=== PATIENT | female | born 1965 | race Caucasian/White ===

== ENCOUNTER 2018-12-29 08:46 | Day surgery (SDC) | payer MEDICARE, OTHER, SELFPAY ==
[2018-12-27 12:43] VITALS: BMI 22.4
[2018-12-29] MEDS: LACTATED RINGERS 1,000 ML 42 ML IV (09:09)
[2018-12-29 09:10] VITALS: BP 127/81; PULSE 75; RESP 16; TEMP 36.4; O2SAT 99; BMI 22.4
--- NOTE | 2018-12-29 10:37 | PM.PREOP ---
Pre-operative Note Interval Note History & Physical reviewed/Exam performed by Physician: Yes Changes to H&P: No
[2018-12-29] MEDS: CEFAZOLIN 2 GM/100 ML FROZ.PIGGY IV (11:06)
--- NOTE | 2018-12-29 11:08 | SUR.PREOP ---
Block start time [1046] . Monitoring initiated and maintained throughout procedure. Oxygen and medications given per anesthesiologist instructions. Patient remained stable throughout procedure, no adverse reactions noted. Block end time [1104].
--- NOTE | 2018-12-29 11:23 | SUR.OPER ---
Supine on padded OR bed, head on pillow, left arm secured on padded arm boards at <90 degrees abduction, right arm drapped free on padded black armboard, legs uncrossed, safety belt at thigh, tape over blanket over lower legs.
--- NOTE | 2018-12-29 11:51 | P.OP_ITS ---
Operative Date/Time/Diagnoses Date of procedure: 12/29/18 Time of procedure: 11:21 Pre-op diagnosis: Right cubital tunnel right middle finger trigger finger Post-op diagnosis: same Procedure & Clinicians Procedure: right cubital tunnel release, right middle finger trigger finger release Same procedure as scheduled: Yes Indications: compression of the ulnar nerve at the cubital tunnel as well as triggering to the right middle finger Surgeon: David Kaminski Pipe Fitter Fire Sprinkler Systems: Sofia Badlwin Anesthesia Type: Peripheral nerve block Operative Notes Findings: compression of the median nerve at the cubital tunnel. No sign of any significant compression distally approximately 2 the cubital tunnel. Triggering of the right middle finger at the A1 chriss. Closure Type: primary Specimen(s): none sent Blood products transfused: none Procedure in detail: On date of service, the patient was met in the holding area. Patients operative site was signed and witnessed by the OR staff. The surgery was once again discussed with the patient, and any remaining questions they had were answered fully. Patient was taken back to the operating theater and placed on the operating table in a supine position. Great care was taken to ensure that all bony prominences were carefully padded. A well-padded tourniquet was placed up along the upper extremity. A timeout was performed to verify patient's name, procedure, and operative site. The arm was then prepped and draped in the normal sterile fashion. A 15 blade was used to incise through skin in the distal palmar crease in line with the middle finger. Pickups and tenotomies were used to bluntly dissect down until the A1 chriss was visualized. Digital nerves were identified and protected. A1 chriss was sharply incised using a 15 blade. This was then completed with Metzenbaum scissors. Once we had opened up the A1 chriss the middle finger would move freely without any locking or catching. We then turned our attention to the cubital tunnel. Ten blade was used to make an incision centered over the cubital tunnel. Ten blade was used incise through skin and fascial tissue. Electrocautery was used to achieve hemostasis. Deep knife was used to proceed with sharp dissection. Next, Metzenbaum scissors were used to identify the nerve proximal to the cubital tunnel. This was then decompressed proximally. Next, the ulnar nerve was decompressed through the cubital tunnel by releasing the cubital tunnel. This decompression was continued distally providing a complete decompression of the nerve. Wound was irrigated and then closed in a layered fashion. The hand was then cleaned, dried, and dressed. Patient was taken to the PACU in stable condition. Complications: none Post-operative Condition: stable Disposition: PACU Plan for aftercare: Patient will follow our postoperative protocol for a cubital tunnel release. No restrictions of range of motion. No lifting more than 2-3 lb for the next 2 weeks.
[2018-12-29 12:01] VITALS: BP 154/95; PULSE 79; RESP 15; TEMP 36.8; O2SAT 99
--- NOTE | 2018-12-29 12:14 | SUR.PHASEII ---
D/c instructions started with pt, in going over post op medication for vicoden pt stated she does not do well with vicoden and tylenol messes with my heart. Dr. Urias to bedside, to talk with pt.
--- NOTE | 2018-12-29 12:18 | SUR.PHASEII ---
Dressing remains c/d/i. Pt now states l arm is starting to wake up and rates pain 5/10. Pt wanting to wait till she gets home to take meds. New prescription for demerol given.
[2018-12-29 12:30] VITALS: BP 136/84; PULSE 77; RESP 16; TEMP 36.7; O2SAT 100
--- NOTE | 2018-12-29 12:49 | SUR.PHASEII ---
Pt dressed when ready and left unit in stable condition.
== END 2018-12-29 12:45 | disposition home or self-care (01) ==
PROVIDERS: Family Provider Family Medicine; PCP Family Medicine; Visit Provider Orthopaedic Surgery
PROC: (CPT 64718; principal; 2018-12-29 10:45)
PROC: (CPT 26055; 2018-12-29 10:45)
DX: G56.01 Carpal tunnel syndrome, right upper limb (principal); G56.21 Lesion of ulnar nerve, right upper limb; M65.331 Trigger finger, right middle finger; G89.18 Other acute postprocedural pain
CPT/HCPCS: 64718; 26055; 64450; J0690; J1100; J2250; J2704; J3010

== ENCOUNTER 2019-05-18 06:28 | Day surgery (SDC) | payer MEDICARE, OTHER, SELFPAY ==
[2019-05-17 08:28] VITALS: BMI 22.4
[2019-05-18] VITALS (8 sets, daily range): BP systolic 84–128; BP diastolic 55–92; PULSE 60–80; RESP 14–17; TEMP 36–36.4; O2SAT 93–100; BMI 22.1
[2019-05-18] MEDS: GABAPENTIN 300 MG CAPSULE PO (07:37)
[2019-05-18] MEDS: LACTATED RINGERS 1,000 ML 42 ML IV (07:37)
[2019-05-18] MEDS: ACETAMINOPHEN 325 MG TABLET 975 MG PO (07:37)
[2019-05-18] MEDS: SCOPOLAMINE 1 PATCH TOP (07:38)
--- NOTE | 2019-05-18 07:44 | PM.PREOP ---
Pre-operative Note Interval Note History & Physical reviewed/Exam performed by Physician: Yes Changes to H&P: No
[2019-05-18] MEDS: CLINDAMYCIN 900 MG/50 ML PIGGYBACK 50 MG IV (07:55)
--- NOTE | 2019-05-18 08:19 | SUR.OPER ---
Supine on padded OR bed, head on pillow, right arm secured on padded arm board at <90 degrees abduction, left arm on arm table under control of surgeon, legs uncrossed, safety belt at thigh, tape over blanket over lower legs.
[2019-05-18] MEDS: BUPIVACAINE 0.5% W/ EPI (PF) 10 ML VIAL 20 ML INJ (08:27)
[2019-05-18] MEDS: DEXAMETHASONE 10 MG/ML VIAL 4 MG INJ (08:29)
--- NOTE | 2019-05-18 08:59 | PM.OP.1 ---
Operative Date/Time/Diagnoses Date of procedure: 05/18/19 Time of procedure: 08:00 Pre-op diagnosis: Left carpal tunnel and cubital tunnel as well as medial epicondylitis Post-op diagnosis: same Procedure & Clinicians Procedure: Left carpal tunnel and cubital tunnel release as well as injection into the medial epicondyle Same procedure as scheduled: Yes Indications: Left carpal tunnel and cubital tunnel and medial epicondylitis Surgeon: David Kaminski Underwater Photographer: Mic Chavez Anesthesia Type: General Operative Notes Findings: Compression of the median nerve at the carpal tunnel compression of the ulnar nerve at the cubital tunnel Closure Type: primary Specimen(s): none sent Estimated Blood Loss (mL): 0 Blood products transfused: none Tourniquet time (min): 26 Procedure in detail: On date of service, the patient was met in the holding area. Patients operative site was signed and witnessed by the OR staff. The surgery was once again discussed with the patient, and any remaining questions they had were answered fully. Patient was taken back to the operating theater and placed on the operating table in a supine position. Great care was taken to ensure that all bony prominences were carefully padded. A well-padded tourniquet was placed up along the upper extremity. A timeout was performed to verify patient's name, procedure, and operative site. The arm was then prepped and draped in the normal sterile fashion. A 15 blade was used to incise through skin In the center of the palm. Pickups and tenotomy scissors were used to dissect down until the palmar fascia was visualized. The palmar fascia was then sharply incised using a 15 blade. This gave us good visualization of the carpal ligament. A small opening was made into the carpal ligament, and a curved hemostat was placed into that opening. A 15 blade was then used to sharply incise the carpal ligament with the structures beneath being protected by the hemostat. Pickups and Metzenbaum scissors were used to complete the decompression both distally and proximally. This provided a complete decompression of the median nerve. Wound was irrigated and then closed with nylon. We then turned our attention to the cubital tunnel. Ten blade was used to make an incision centered over the cubital tunnel. Ten blade was used incise through skin and fascial tissue. Electrocautery was used to achieve hemostasis. Deep knife was used to proceed with sharp dissection. Next, Metzenbaum scissors were used to identify the nerve proximal to the cubital tunnel. This was then decompressed proximally. Next, the ulnar nerve was decompressed through the cubital tunnel by releasing the cubital tunnel. This decompression was continued distally providing a complete decompression of the nerve. Next, with direct visualization of the medial epicondyle, 4 mg of dexamethasone was injected in to the medial epicondyle at the tendon insertion. Wound was irrigated and then closed in a layered fashion. The hand was then cleaned, dried, and dressed. Patient was taken to the PACU in stable condition. Complications: none Post-operative Condition: stable Disposition: PACU Plan for aftercare: Patient will follow our postoperative protocol for carpal tunnel and cubital tunnel release.
--- NOTE | 2019-05-18 09:02 | SUR.PHASEI ---
report given to Marjan
== END 2019-05-18 10:00 | disposition home or self-care (01) ==
PROVIDERS: Family Provider Family Medicine; PCP Family Medicine; Referring Provider Orthopaedic Surgery; Visit Provider Orthopaedic Surgery
PROC: (CPT 64721; principal; 2019-05-18 07:45)
PROC: (CPT 64718; 2019-05-18 07:45)
DX: G56.02 Carpal tunnel syndrome, left upper limb (principal); G56.22 Lesion of ulnar nerve, left upper limb; M77.02 Medial epicondylitis, left elbow; I48.91 Unspecified atrial fibrillation; F41.9 Anxiety disorder, unspecified
CPT/HCPCS: 64718; 64721; 20551; J1100; J2250; J2405; J2704

== ENCOUNTER → 2020-03-13 08:14 | Outpatient (CLI) | payer MEDICARE, OTHER, SELFPAY ==
--- NOTE | 2020-03-13 | DI.MG.S_ITS ---
BILATERAL DIGITAL SCREENING MAMMOGRAM 3D/2D WITH CAD WITH AUGMENTATION: 03/13/2020 CLINICAL: Routine screening. Family history of breast cancer. Comparison is made to exams dated: 07/15/2017 mammogram and 04/10/2013 mammogram - [facility]. The tissue of both breasts is extremely dense, which lowers the sensitivity of mammography. Current study was also evaluated with a Computer Aided Detection (CAD) system. Bilateral breast implants are intact. No significant masses, calcifications, or other findings are seen in either breast. There has been no significant interval change. IMPRESSION: NEGATIVE There is no mammographic evidence of malignancy. A 1 year screening mammogram is recommended. This exam was interpreted at Station ID: [id number]. NOTE: For mammograms, a report in lay terms will be sent to the patient. Approximately 15% of breast malignancies will not be visualized mammographically. In the management of a palpable breast mass, a negative mammogram must not discourage biopsy of a clinically suspicious lesion. Electronically Signed By: Yovanny stover/cheryl:03/13/2020 08:53:02 letter sent: Normal Exam ACR BI-RADS Category 1: Negative [id number]
== END ==
PROVIDERS: Family Provider Family Medicine; PCP Family Medicine; Referring Provider Family Medicine; Visit Provider Family Medicine
DX: Z12.31 Encounter for screening mammogram for malignant neoplasm of breast (principal); Z80.3 Family history of malignant neoplasm of breast
CPT/HCPCS: 77063; 77067

== ENCOUNTER → 2021-09-17 12:12 | Outpatient (CLI) | payer MEDICARE, OTHER, SELFPAY ==
--- NOTE | 2021-09-17 12:17 | DI.RAD.S_ITS ---
PROCEDURE: XR CERVICAL SPINE 2V OR 3V INDICATIONS: arm pain, neck pain, cervical radiculopathy TECHNIQUE: 3 view(s) of the cervical spine were acquired. COMPARISON: None. FINDINGS: Bones: No fractures or dislocations to the T1 level. Loss of normal cervical lordosis. 2 mm of anterolisthesis of C4 on C5. Multilevel disc space narrowing and endplate osteophyte formation. Facet hypertrophy throughout the cervical spine. The lateral masses of C1 appear intact on the odontoid view. No suspicious bony lesions. Soft tissues: No prevertebral soft tissue swelling. IMPRESSION: Multilevel degenerative disc and facet disease. No acute fracture. No osseous lesion. If symptoms and/or clinical suspicion for pathology persist, further assessment with repeat, or advanced imaging (e.g., CT, MRI, or bone scan) may be helpful for further assessment. Dictated by: Mary Alice Harrell M.D. on 09/17/2021 at 13:34 Approved by: Mary Alice Harrell M.D. on 09/17/2021 at 13:35
--- NOTE | 2021-09-17 12:17 | DI.RAD.S_ITS ---
PROCEDURE: XR THORACIC SPINE 3V INDICATIONS: arm pain, neck pain, cervical radiculopathy TECHNIQUE: 3 views of the thoracic spine were acquired. COMPARISON: None. FINDINGS: Bones: No fractures or dislocations. No suspicious bony lesions. Multilevel disc space narrowing and endplate osteophyte formation. Soft tissues: No paravertebral stripe thickening. IMPRESSION: Multilevel degenerative disc disease. No acute fracture. No osseous lesion. If symptoms and/or clinical suspicion for pathology persist, further assessment with repeat, or advanced imaging (e.g., CT, MRI, or bone scan) may be helpful for further assessment. Dictated by: Mary Alice Harrell M.D. on 09/17/2021 at 13:35 Approved by: Mary Alice Harrell M.D. on 09/17/2021 at 13:35
--- NOTE | 2021-09-17 12:17 | DI.RAD.S_ITS ---
PROCEDURE: XR ELBOW LT MIN 3V INDICATIONS: arm pain, neck pain, cervical radiculopathy TECHNIQUE: 3 views of the elbow were acquired. COMPARISON: None. FINDINGS: Bones: No fractures or dislocations. No suspicious bony lesions. Soft tissues: No elbow joint effusion. No suspicious soft tissue calcifications. IMPRESSION: No acute fracture. No osseous lesion. If symptoms and/or clinical suspicion for pathology persist, further assessment with repeat, or advanced imaging (e.g., CT, MRI, or bone scan) may be helpful for further assessment. Dictated by: Mary Alice Harrell M.D. on 09/17/2021 at 13:33 Approved by: Mary Alice Harrell M.D. on 09/17/2021 at 13:33
== END ==
PROVIDERS: Family Provider Family Medicine; PCP Family Medicine; Referring Provider Family Medicine; Visit Provider Family Medicine
DX: R10.9 Unspecified abdominal pain (principal); M79.602 Pain in left arm; M54.12 Radiculopathy, cervical region; M51.34 Other intervertebral disc degeneration, thoracic region; M50.30 Other cervical disc degeneration, unspecified cervical region
CPT/HCPCS: 72040; 72072; 73080

== ENCOUNTER → 2021-09-25 15:14 | Outpatient (CLI) | payer MEDICARE, OTHER, SELFPAY ==
--- NOTE | 2021-09-25 | DI.US.S_ITS ---
PROCEDURE: US PELVIC COMPLETE INDICATIONS: ABDOMINAL AND PELVIC PAIN TECHNIQUE: Real-time scanning was performed of the pelvic organs, with image documentation. Additional endovaginal scanning was necessary due to incomplete visualization of the adnexal and endometrial structures by transabdominal scanning. COMPARISON: [facility], , US ABDOMEN LIMITED, 09/25/2021, 17:07. FINDINGS: Uterus: Hysterectomy. Ovaries: Both ovaries have been removed. No adnexal masses are seen on either side. Other: No pathologic free abdominal or pelvic fluid. This study is limited by prominent bowel gas. IMPRESSION: Limited study demonstrating no significant abnormality post hysterectomy and oophorectomy. We strive to produce accurate, complete, and clear reports of imaging services. To assist us in improving patient care, this report was composed using standard report templates and voice recognition software. Therefore, it may contain abnormal punctuation, insertions and/or omissions. Occasional wrong-word or sound-alike substitutions may occur. Though we review the report and make efforts to correct it, we do recommend that the report be read carefully in proper context to recognize any text inaccuracies. Dictated by: Robinson Lombardo M.D. on 09/25/2021 at 15:47 Approved by: Robinson Lombardo M.D. on 09/25/2021 at 15:48
--- NOTE | 2021-09-25 | DI.US.S_ITS ---
PROCEDURE: US ABDOMEN LIMITED INDICATIONS: ABDOMINAL AND PELVIC PAIN TECHNIQUE: Real-time focused scanning was performed of the abdomen, with image documentation. COMPARISON: None. FINDINGS: No mass, fluid collection, or free fluid identified. IMPRESSION: No abnormality identified. Dictated by: Bolivar Porras M.D. on 09/25/2021 at 16:49 Approved by: Bolivar Porras M.D. on 09/25/2021 at 16:50
== END ==
PROVIDERS: Family Provider Family Medicine; PCP Family Medicine; Referring Provider Family Medicine; Visit Provider Family Medicine
DX: R10.9 Unspecified abdominal pain (principal); R10.2 Pelvic and perineal pain; Z90.710 Acquired absence of both cervix and uterus; Z90.722 Acquired absence of ovaries, bilateral
CPT/HCPCS: 76705; 76856

== ENCOUNTER → 2021-11-04 10:37 | Outpatient (CLI) | payer MEDICARE, OTHER, SELFPAY ==
--- NOTE | 2021-11-04 10:51 | DI.MRI.S_ITS ---
PROCEDURE: MR CERVICAL SPINE WO CON INDICATIONS: Spinal stenosis, cervical region TECHNIQUE: Noncontrast sagittal T1 spin echo and T2 fast spin echo, sagittal STIR, foraminal oblique sagittal T2 fast spin echo, and axial gradient echo or T2 fast spin echo through the cervical spine. COMPARISON: None. FINDINGS: Image quality: This examination is limited by involuntary motion artifact. Alignment and Curvature: There is minimal retrolisthesis seen at C5-C6. Bone Marrow: Marrow demonstrates normal overall signal. Spinal Cord: Visualized spinal cord has normal size and signal. No cerebellar tonsillar herniation. Paraspinous Soft Tissues: No paravertebral masses. Prevertebral soft tissues are normal in thickness. C2-C3: The disc height and disc signal are relatively well preserved. A mild degree of generalized disc osteophyte complex is seen. There is [id number] right-sided and moderate to prominent left-sided facet hypertrophy. No significant neural foraminal or central canal narrowing can be seen. C3-C4: The disc height and disc signal are relatively well preserved. A mild degree of generalized disc osteophyte complex is seen. At least moderate facet hypertrophy is seen. There is at least moderate bilateral neural foraminal narrowing seen. No significant central canal narrowing is seen. C4-C5: Muma-[id number] loss disc height and disc signal can be seen. A mild degree of generalized disc osteophyte complex is seen. [id number] right-sided and prominent left-sided facet hypertrophy is seen. There is moderate to severe left-sided and at least moderate right-sided neural foraminal narrowing. No significant central canal narrowing is seen. C5-C6: At least moderate loss of disc height and disc signal can be seen at this level. Moderate generalized disc osteophyte complex is seen. Moderate facet joint hypertrophy is seen. Moderate to severe bilateral neural foraminal narrowing can be seen, right worse than left. Mild central canal narrowing is seen. C6-C7: Mild loss of disc height is seen. Loss of disc signal is seen. Mild to moderate disc osteophyte complex is seen. There is at least moderate facet hypertrophy seen at this level. Moderate to severe bilateral neural foraminal narrowing is seen, right worse than left. Minimal central canal narrowing is seen. C7-T1: The disc height and disk signal are well-preserved. A mild degree of generalized disc osteophyte complex is seen. Mild facet joint hypertrophy is seen. Moderate bilateral neural foraminal narrowing is seen. No significant central canal narrowing is seen. IMPRESSION: Cervical spine degenerative changes are seen, which are worst at the C5-C6 level. Dictated by: Robinson Lombardo M.D. on 11/04/2021 at 12:07 Approved by: Robinson Lombardo M.D. on 11/04/2021 at 12:10
== END ==
PROVIDERS: Family Provider Family Medicine; PCP Family Medicine; Referring Provider Physical Medicine & Rehabilitation; Visit Provider Physical Medicine & Rehabilitation
DX: M48.02 Spinal stenosis, cervical region (principal)
CPT/HCPCS: 72141

== ENCOUNTER → 2024-08-19 10:19 | Outpatient (CLI) | payer MEDICARE, OTHER, SELFPAY ==
--- NOTE | 2024-08-19 10:52 | DI.RAD.S_ITS ---
PROCEDURE: XR ABDOMEN MIN 2V INDICATIONS: ABD PAIN TECHNIQUE: 2 views of the abdomen were acquired. COMPARISON: None. FINDINGS: Surgical changes and devices: None. Bowel: No pneumoperitoneum. The bowel gas pattern is normal. Soft tissues: No masses; visualized solid organ contours appear normal in size. No suspicious abdominal calcifications. Bones: No suspicious bony abnormalities. IMPRESSION: Nonobstructive bowel gas pattern. No gross pneumoperitoneum. No significant fecal burden. Dictated by: Vinh Joseph M.D. on 08/20/2024 at 1:39 Approved by: Vinh Joseph M.D. on 08/20/2024 at 1:39
--- NOTE | 2024-08-19 10:52 | DI.RAD.S_ITS ---
PROCEDURE: XR HAND RT MIN 3V INDICATIONS: RIGHT HAND PAIN TECHNIQUE: 3 views of the hand(s) acquired. COMPARISON: None. FINDINGS: Bones: No fractures or dislocations. Carpal bones are normally aligned. Mild right hand and wrist joint osteoarthritic changes are seen more notably involving 1st CMC joint and triscaphe joint. Radiolucencies are seen involving ulnar styloid , trapezium and lunate. No suspicious bony lesions. Soft tissues: No suspicious soft tissue calcifications. IMPRESSION: No acute right hand fracture or dislocation. 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 Radiolucency involving lunate, trapezium and ulnar styloid, subtle erosion secondary to inflammatory arthropathy cannot be excluded. Clinical correlation is recommended. Dictated by: Vinh Joseph M.D. on 08/20/2024 at 1:39 Approved by: Vinh Joseph M.D. on 08/20/2024 at 1:41
== END ==
PROVIDERS: Family Provider Family Medicine; PCP Family Medicine; Referring Provider Family Medicine; Visit Provider Family Medicine
DX: M19.041 Primary osteoarthritis, right hand (principal); M25.549 Pain in joints of unspecified hand; R10.9 Unspecified abdominal pain
CPT/HCPCS: 73130; 74018